=== PATIENT | male | born 1960 | race Caucasian/White ===

== ENCOUNTER 2018-09-22 18:00 | Emergency (ER) | payer OTHER ==
[2018-09-22] MEDS: IBUPROFEN 800 MG TAB PO (22:08)
== END 2018-09-22 22:44 | disposition home or self-care (01) ==
LOC: E/R 18:00
DX: S80.01XA Contusion of right knee, initial encounter (principal); S13.9XXA Sprain of joints and ligaments of unspecified parts of neck, initial encounter; S39.012A Strain of muscle, fascia and tendon of lower back, initial encounter; E11.9 Type 2 diabetes mellitus without complications; V49.49XA Driver injured in collision with other motor vehicles in traffic accident, initial encounter
CPT/HCPCS: 99282